=== PATIENT | female | born 1970 | race Caucasian/White ===

== ENCOUNTER 2018-04-29 16:00 | Emergency (ER) | payer OTHER ==
[2018-04-29 17:15] LABS: PLATELET COUNT 203 10^3/uL (150-400)
[2018-04-29] MEDS ORDERED: NS 1,000 ML IV ONE (17:22)
[2018-04-29] MEDS ORDERED: DIAZEPAM 5 MG/ML 1 ML SYR IVP ONE (17:23)
--- NOTE | 2018-04-29 17:25 | EDPHY ---
H & P Time Seen by Provider: 04/29/18 16:30 HPI/ROS: HPI Hyperventilating, tingling in hands. 48-year-old female by private vehicle with her . She reports that at approximately 3:30 p.m. She developed a sensation of tingling in her hands feet and face with associated hyperventilation. She has not had any chest pain. She reports that she has had an unusually lengthy and a radically menstruation over the last 2 weeks. She does have a history of anemia. She takes Wellbutrin for depression. She recently had this dose doubled approximately 3- 4 days ago. She has also recently been taking Flagyl for a vaginal infection. She has been on Flagyl for several days as well. At the time of my evaluation she feels much better. She states that she has had a gradual onset typical migraine headache for the entire day. She reports she still has a headache but it is better. She states that she still feels anxious. She had some nausea on the way to the emergency department 1 episode of nonbilious, nonbloody vomiting. ROS: Constitutional: No fever, no chills. As above. Eyes: No discharge. No changes in vision. ENT: No sore throat. No nasal congestion or rhinorrhea. Respiratory: No cough. No shortness of breath. Cardiac: No chest pain, no palpitations. Gastrointestinal: No abdominal pain, no vomiting, no diarrhea. Genitourinary: No hematuria. No dysuria or increased frequency with urination. Musculoskeletal: No back pain. No neck pain. No myalgias or arthralgias. Skin: No rashes. Neurological: No headache. No focal weakness or altered sensation. Past medical history: Depression. As above. Social history: Nonsmoker. No alcohol. Here with her . Physical Exam: General Appearance: Alert, no distress. At this time she appears relaxed and comfortable. This patient is responding to questions appropriately and in full sentences. This patient appears well-hydrated and well-nourished. Eyes: Pupils equal and round no pallor or injection. No lid edema, erythema or injection. ENT, Mouth: Mucous membranes are moist. The pharyngeal tissues are unremarkable. No edema or swelling. No asymmetry suggestive of abscess. No erythema or exudates. No tongue lacerations or abrasions. Respiratory: There are no retractions, lungs are clear to auscultation with good air movement bilaterally. No tachypnea. Cardiovascular: Regular rate and rhythm. No tachycardia. No murmur appreciated. Gastrointestinal: Abdomen is soft and nontender, no masses, bowel sounds normal. No focal tenderness at McBurney's point. No Troncoso sign. Neurological: Motor sensory function is grossly intact. Cranial nerves are normal. Gait is normal. Skin: Warm and dry, no rashes. Musculoskeletal: Neck is supple and nontender. Extremities are symmetrical. All joints range without pain or impingement. Psychiatric: No agitation. No depression. Database: EKG: EKG time is 5:23 p.m.; EKG shows a narrow complex normal sinus rhythm with a ventricular rate of 70. Nonspecific T-wave abnormalities in the lateral leads. The SD, QRS, QT intervals are within normal limits. There are no ST-T wave changes indicative of ischemic or injury pattern. No evidence of right heart strain. Interpreted by me. Imaging: Procedures: Emergency department course: Triage vital signs reviewed. Triage vital signs indicate tachypnea with respiratory rate of 28 and tachycardia with a heart rate of 108. Triage vital signs are otherwise unremarkable. On my evaluation she appears comfortable. I will give her 5 mg of IV Valium for anxiety. EKG obtained and reviewed by myself. She will be started on IV normal saline with 1 L to be given over the next hour. 6:15 p.m., patient re-evaluated, resting comfortably at this time. She feels much better. Results of her emergency department workup discussed with her and her . She feels comfortable going home at this time. Repeat vital signs , she is moderately hypertensive. 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 Pulse oximetry is 97% on room air. Follow-up and return to emergency department precautions discussed with her in detail. All of her questions were answered. The patient was discharged from the emergency department in good condition. Differential Diagnosis: The differential diagnosis on this patient includes but is not limited to anxiety reaction, panic attack. Allergic reaction, medication reaction, serotonin syndrome unlikely. This represents a partial list of diagnoses considered. These considerations are based on history, physical exam, past history, reassessment and diagnostic testing. Smoking Status: Never smoked Constitutional: Initial Vital Signs Temperature (C) 36.7 C 11/16/18 16:13 Heart Rate 108 H 04/29/18 16:13 Respiratory Rate 28 H 04/29/18 16:13 Blood Pressure 134/94 H 04/29/18 16:13 O2 Sat (%) 99 04/29/18 16:13 O2 Delivery Mode Room Air Allergies/Adverse Reactions: No Known Allergies Allergy (Unverified 04/29/18 16:12) Home Medications: Medication Instructions Recorded Iron 04/21/16 Flagyl 04/29/18 Wellbutrin 100mg (*) 04/29/18 Medical Decision Making - Data Points Laboratory Results: Laboratory Results 04/29/18 17:00 04/29/18 17:00 04/29/18 04/29/18 04/29/18 17:09 17:00 17:00 WBC 10.91 10^3/uL H 10^3/uL (3.80-9.50) RBC 4.65 10^6/uL 10^6/uL (4.18-5.33) Hgb 14.1 g/dL g/dL (12.6-16.3) Hct 41.6 % % (38.0-47.0) MCV 89.5 fL fL (81.5-99.8) MCH 30.3 pg pg (27.9-34.1) MCHC 33.9 g/dL g/dL (32.4-36.7) RDW 12.9 % % (11.5-15.2) Plt Count 203 10^3/uL 10^3/uL (150-400) MPV 11.0 fL fL (8.7-11.7) Neut % (Auto) 82.2 % H % (39.3-74.2) Lymph % (Auto) 9.8 % L % (15.0-45.0) [place] % (Auto) 7.3 % % (4.5-13.0) Eos % (Auto) 0.1 % L % (0.6-7.6) Baso % (Auto) 0.3 % % (0.3-1.7) Nucleat RBC Rel Count 0.0 % % (0.0-0.2) Absolute Neuts (auto) 8.97 10^3/uL H 10^3/uL (1.70-6.50) Absolute Lymphs (auto) 1.07 10^3/uL 10^3/uL (1.00-3.00) Absolute Monos (auto) 0.80 10^3/uL 10^3/uL (0.30-0.80) Absolute Eos (auto) 0.01 10^3/uL L 10^3/uL (0.03-0.40) Absolute Basos (auto) 0.03 10^3/uL 10^3/uL (0.02-0.10) Absolute Nucleated RBC 0.00 10^3/uL 10^3/uL (0-0.01) Immature Gran % 0.3 % % (0.0-1.1) Immature Gran # 0.03 10^3/uL 10^3/uL (0.00-0.10) Sodium 135 mEq/L mEq/L (135-145) Potassium 3.2 mEq/L L mEq/L (3.3-5.0) Chloride 100 mEq/L mEq/L (97-110) Carbon Dioxide 18 mEq/l L mEq/l (22-31) Anion Gap 17 mEq/L H mEq/L (6-14) BUN 11 mg/dL mg/dL (7-23) Creatinine 0.8 mg/dL mg/dL (0.6-1.0) Estimated GFR > 60 Glucose 142 mg/dL H mg/dL (70-100) Calcium 9.6 mg/dL mg/dL (8.5-10.4) POC Troponin I 0.00 ng/mL ng/mL (0.00-0.08) Medications Given: Discontinued Medications Diazepam (Valium) 5 mg IVP EDNOW ONE Stop: 04/29/18 17:24 Last Admin: 18 17:41 Dose: 5 mg Sodium Chloride (Ns) 1,000 mls @ 0 mls/hr IV EDNOW ONE; Wide Open PRN Reason: Protocol Stop: 04/29/18 17:23 Last Admin: 04/29/18 17:41 Dose: 1,000 mls Point of Care Test Results: Chemistry 04/29/18 17:09 POC Troponin I 0.00 ng/mL ng/mL (0.00-0.08) Departure - Departure Disposition: Home, Routine, Self-Care Clinical Impression: Panic attack Condition: Good Instructions: Panic Attack (ED) Additional Instructions: Read and follow provided instructions. Follow-up with your primary care physician on Wednesday for re-evaluation as discussed. Resume original dose of Wellbutrin. Do not take double dose of Wellbutrin until you have been cleared by her primary care physician. Return to the emergency department for return of symptoms or other serious concerns. Referrals: NONE *PRIMARY CARE P,. [Primary Care Provider] - As per Instructions
[2018-04-29 18:30] VITALS: BP 140/97
--- NOTE | 2018-04-30 09:23 | CPEKG ---
Test Reason : OPEN Blood Pressure : / mmHG Vent. Rate : 070 BPM Atrial Rate : 069 BPM P-R Int : 160 ms QRS Dur : 103 ms QT Int : 443 ms P-R-T Axes : 047 -61 088 degrees QTc Int : 479 ms Sinus rhythm Left anterior fascicular block Nonspecific T abnormalities, lateral leads Minimal ST elevation, lateral leads Confirmed by Kavin Tate ([id number] on 04/30/2018 9:23:21 AM Referred By: Confirmed By:Kavin Tate
== END 2018-04-29 18:32 | disposition home or self-care (01) ==
DX: F41.0 Panic disorder [episodic paroxysmal anxiety] (principal)
CPT/HCPCS: 84484-PO; 96374; J3360

== ENCOUNTER → 2018-05-13 | Outpatient (CLI) | payer OTHER | LOC: FIMAGING 09:06 | PROVIDERS: ATTEND Physician Assistant Medical | DX: N83.201 Unspecified ovarian cyst, right side (principal); R93.89 Abnormal findings on diagnostic imaging of other specified body structures; N88.8 Other specified noninflammatory disorders of cervix uteri ==